=== PATIENT | female | born 1980 | race Caucasian/White ===

== ENCOUNTER 2016-07-16 13:33 | Emergency (ER) | payer OTHER | END 2016-07-16 13:44 | disposition home or self-care (01) | LOC: ER 13:33 | DX: S70.262A Insect bite (nonvenomous), left hip, initial encounter (principal); F41.9 Anxiety disorder, unspecified; Z88.1 Allergy status to other antibiotic agents; W57.XXXA Bitten or stung by nonvenomous insect and other nonvenomous arthropods, initial encounter ==